=== PATIENT | female | born 1990 | race Caucasian/White ===

== ENCOUNTER 2017-10-26 09:08 | Day surgery (SDC) | payer BC ==
[~2017-10-26] VITALS: Ht 154.9 cm; Wt 56.7 kg
[~2017-10-26 09:08] MED LIST: DOCUSATE SODIU100 MG PO; ENDOCET 5-3251 EACH PO; IBUPROFEN800 MG PO; MOTRIN IB200 MG PO; PRENATAL TABLE1 EAC3 PO; TYLENOL EXTRA500 MG PO
[2017-10-26 09:37] VITALS: BP 123/75
[2017-10-26 09:46] LABS: BASOPHIL (%) 0.8 % (0-1); EOSINOPHIL (%) 1.8 % (0-5); EOSINOPHIL COUNT 0.1 K/uL (0-0.3); HEMATOCRIT 40.7 % (36.0-46.0); HEMOGLOBIN 12.8 G/DL (11.9-15.5); IMMATURE GRANULOCYTE (%) 0.2 % (0.0-0.7); LYMPHOCYTE (%) 31.3 % (15-42); LYMPHOCYTE COUNT 1.6 K/uL (1.0-2.8); MCH 27.2 PG (29.0-34.0); MCHC 31.4 G/DL (30.0-36.0); MCV 86.4 FL (83-99); MONOCYTE (%) 8.6 % (3-12); MONOCYTE COUNT 0.4 K/uL (0-0.8); NEUTROPHIL (%) 57.3 % (45-76); NEUTROPHIL COUNT 2.9 K/uL (1.8-6.4); PLATELET COUNT 237 K/uL (156-360); RBC DIS.WIDTH-CV 13.8 % (11.8-14.6); RBC DIS.WIDTH-SD 43.7 % (39-53); RED BLOOD COUNT 4.71 M/uL (3.80-5.20)
[2017-10-26] MEDS ORDERED: HYDROCODON-ACE1 EAC7 PO (12:22)
[2017-10-26] MEDS ORDERED: MOTRIN800 MG PO (12:22)
[2017-10-26 13:03] VITALS: BP 116/59
[2017-10-26 14:25] VITALS: BP 115/57
== END 2017-10-26 14:34 | disposition home or self-care (01) ==
LOC: SDC 09:08
PROVIDERS: Family Medicine
PROC: 10D17ZZ Extraction of Products of Conception, Retained, Via Natural or Artificial Opening (ICD-10-PCS; principal; 2017-10-26)
DX: O03.4 Incomplete spontaneous abortion without complication (principal)
CPT/HCPCS: 85025; 86850; 86900; 86901; 88305; J1100; J1885; J2250; J2405; J2788; J2790; J3010